=== PATIENT | female | born 1945 | race Caucasian/White ===

== ENCOUNTER → 2018-11-23 | Outpatient (CLI) | payer MEDICARE ==
[~2018-11-23] MED LIST: REGADENOSON 0.4 MG/5 ML DISP.SYRIN. IV ONE
--- NOTE | 2018-11-23 09:34 | PCVCIMAG ---
APPROVED REPORT Study performed: 11/23/2018 07:53:15 EXAM: Comprehensive 2D, Doppler, and color-flow Echocardiogram Patient Location: Echo lab Status: routine BSA: 1.78 HR: 58 bpmBP: 118/76 mmHg Rhythm: Bradycardia Other Information Study Quality: Adequate Risk Factors: Cardiac Risk Factors: HTN Indications Bradycardia Dyspnea 2D Dimensions IVSd: 9.73 (7-11mm) LVDd: 46.98 mm PWd: 8.20 (7-11mm) LVDs: 31.67 (25-40mm) Left Atrium: 37.66 (27-40mm) Aortic Root: 26.21 mm LV Single Plane 4CH: 54.08 % LV Single Plane 2CH: 69.98 % Biplane EF: 62.9 % Volumes Left Atrial Volume (Systole) Single Plane 4CH: 51.48 mLSingle Plane 2CH: 45.38 mL LA ESV Index: 28.00 mL/m2 Aortic Valve AoV Peak Terry.: 1.46 m/s AO Peak Gr.: 8.55 mmHgLVOT Max P.84 mmHg LVOT Max V: 0.98 m/s Mitral Valve E/A Ratio: 0.8 MV Decel. Time: 278.35 ms MV E Max Terry.: 0.81 m/s MV A Terry.: 1.02 m/s IVRT: 131.49 ms Pulmonary Valve PV Peak Terry.: 0.88 m/sPV Peak Gr.: 3.07 mmHg Pulmonary Vein P Vein S: 0.27 m/sP Vein A: 0.46 m/s P Vein D: 0.40 m/sP Vein A Dur.: 134.9 msec P Vein S/D Ratio: 0.68 Tricuspid Valve TR Peak Terry.: 2.34 m/s TR Peak Gr.: 21.90 mmHg TV Vmax: 0.53 m/s Left Ventricle The left ventricle is normal size. There is normal LV segmental wall motion. There is normal left ventricular wall thickness. Left ventricular systolic function is normal. The left ventricular ejection fraction is within the normal range. LVEF is 60-65%. Grade I - abnormal relaxation pattern. Right Ventricle The right ventricle is normal size. The right ventricular systolic function is normal. Atria The left atrium size is normal. The right atrium size is normal. Aortic Valve The aortic valve is normal in structure. No aortic regurgitation is present. There is no aortic valvular stenosis. Mitral Valve Mild posterior MAC. The mitral valve is normal in structure. There is mild mitral valve regurgitation noted. No evidence of mitral valve stenosis. Tricuspid Valve The tricuspid valve is normal in structure. Mild tricuspid regurgitation with PAP of 29 mmHg. Pulmonic Valve The pulmonary valve is normal in structure. There is no pulmonic valvular regurgitation. Great Vessels The aortic root is normal in size. IVC is normal in size and collapses >50% with inspiration. Pericardium There is no pericardial effusion. There is no pleural effusion. <Conclusion> The left ventricle is normal size. There is normal left ventricular wall thickness. Left ventricular systolic function is normal. Grade I - abnormal relaxation pattern. The right ventricle is normal size. The left atrium size is normal. The aortic valve is normal in structure. Mild posterior MAC. The mitral valve is normal in structure. There is mild mitral valve regurgitation noted. Mild tricuspid regurgitation with PAP of 29 mmHg.
--- NOTE | 2018-11-23 12:04 | PCVCIMAG ---
APPROVED REPORT Imaging Protocol: Rest Tc-99m/Stress Tc-99m 1 day Study performed: 11/23/2018 08:58:42 Indication: Dyspnea, Fatigue, Bradycardia Patient Location: Out-Patient Stress Nurse: Nancy Norman RN, Juani Coburn RN [place] Tech:Najma Link [facility] Ht: 5 ft 2 in Wt: 166 lbs BSA: 1.77 m2 HR: 63 bpm BP: 150/72 mmHg BMI: 30.35 Rhythm: Sinus Rhythm, Incomplete RBBB Medical History Medical History: HTN, Hyperlipidemia Medications: Metoprolol, Amlodipine, ASA, HCTZ, Lisinopril, Lovastatin Allergies: No known drug allergies Cardiac Risk Factors: Age Pretest Chest Pain Characteristics: No chest pain Exercise History: Physically active Resting Data Rest SPECT myocardial perfusion imaging was performed in supine position 45 minutes following the intravenous injection of 10.4 mCi of Tc-99m Sestamibi. Time of rest injection: 0900 Date: 11/23/2018 Administration Route: IV Administration Site: Right AC Pharmacologic Stress Pharmacologic stress test was performed by injecting Regadenoson 0.4 mg IV push over 10-15 seconds immediately followed by the intravenous injection of 33.6 mCi of Tc-99m Sestamibi. Time of stress injection: 1020 Date: 11/23/2018 Administration Route: IV Administration Site: Right AC Gated Stress SPECT was performed 45 minutes after stress injection. The images were gated to evaluate regional wall motion and calculate left ventricular ejection fraction. Stress Test Details Stress Test: Pharmacologic stress testing performed using 0.4 mg of regadenoson per 5 mL given IV over 10 seconds. Reason for pharmacologic stress test: Knee problems. HRMax Heart Rate (APMHR): 148 bpm Resting HR: 63 bpmTarget HR (85% APMHR): 125 bpm Max HR Achieved: 99 bpm % of APMHR: 66 Recovery HR: 89 bpm BP Resting BP: 150/72 mmHg Max BP: 129/57 mmHg Recovery BP: 151/66 mmHg ECG Resting ECG: Sinus Rhythm, Incomplete RBBB Stress ECG: Sinus Rhythm ST Change: Non-ischemic Recovery ECG: Sinus Rhythm Clinical Reason for Termination: Completed protocol Stress Symptoms: Nausea, Emesis Exercise duration: 0 min 55 sec Symptoms resolved with caffeine. Study Quality Study: Good Study Data Post stress, the left ventricular ejection was 86%.. SSS: 0 SRS: 0 SDS: 0 TID = 0.83. Perfusion Normal left ventricular perfusion. Normal perfusion on both the stress and rest images. Wall Motion Normal left ventricular wall motion. Nuclear Conclusion ECG Findings: negative for ischemia Clinical Findings: non-diagnostic Nuclear Findings: negative for ischemia Exercise Capacity: not assessed Left Ventricular Function: normal Risk Study: low This study is of low probability for inducible ischemia or prior infarct. Normal global and segmental LV systolic function.
== END | disposition home or self-care (01) ==
LOC: PCVCIMAG 08:20
PROVIDERS: ATTEND Internal Medicine Cardiovascular Disease
DX: I08.1 Rheumatic disorders of both mitral and tricuspid valves (principal); R06.00 Dyspnea, unspecified; R00.1 Bradycardia, unspecified; I10 Essential (primary) hypertension; E78.00 Pure hypercholesterolemia, unspecified; E03.9 Hypothyroidism, unspecified; M19.90 Unspecified osteoarthritis, unspecified site
CPT/HCPCS: 78452; 93017; 93306; A9500; G0463; J2785